=== PATIENT | male | born 2000 ===

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

== ENCOUNTER 2018-04-16 14:38 | Emergency (ER) | payer MEDICAID ==
[2018-04-16 14:38] VITALS: BMI 24.2
--- NOTE | 2018-04-16 16:05 | RAD ---
Date of service: 04/16/2018 PROCEDURE: Right Knee Radiographs. HISTORY: Fall COMPARISON: None. FINDINGS: BONES: Bone alignment and mineralization are normal. There is no acute displaced fracture or bone destruction. JOINTS: Normal. JOINT EFFUSION: None. OTHER FINDINGS: None. IMPRESSION: No acute displaced fracture or dislocation.
--- NOTE | 2018-04-16 16:41 | C.PDOC ---
History Of Present Illness 17 year old male presents to ED s/p his right leg going through a hole. Patient's leg went all the way through and all the way up to his right knee. Patient hit his right knee. He reports pain to the medial aspect of his right knee. Patient reports that he hit nothing else. Patient denies loss of consciousness and neck pain. Time Seen by Provider: 04/16/18 15:01 Chief Complaint (Nursing): Lower Extremity Problem/Injury History Per: Patient History/Exam Limitations: no limitations Onset/Duration Of Symptoms: Hrs Current Symptoms Are (Timing): Still Present - Knee Description Of Injury: Struck Against Object Past Medical History Reviewed: Historical Data, Nursing Documentation, Vital Signs Vital Signs: Last Vital Signs Temp 98.7 F 04/16/18 14:40 Pulse 91 H 04/16/18 14:40 Resp 20 04/16/18 14:40 BP 132/84 04/16/18 14:40 Pulse Ox 99 04/16/18 14:40 - Medical History PMH: No Chronic Diseases Surgical History: No Surg Hx Family History: States: Unknown Family Hx - Social History Hx Alcohol Use: No Hx Substance Use: No - Immunization History Hx Tetanus Toxoid Vaccination: No Hx Influenza Vaccination: No Hx Pneumococcal Vaccination: No Review Of Systems Constitutional: Negative for: Fever, Chills, Weakness Musculoskeletal: Positive for: Leg Pain (right knee) Skin: Negative for: Rash Neurological: Negative for: Weakness, Numbness, Dizziness Physical Exam - Physical Exam Appears: Well, No Acute Distress Skin: Normal Color, Warm, Dry Head: Atraumatic, Normacephalic Neck: Normal ROM, Supple Chest: Symmetrical, No Deformity Extremity: No Calf Tenderness, Swelling (abrasion and swelling to the medial aspect of the right ankle), Other (Hematoma with abrasion to the medial aspect of the right knee, no active bleeding) Neurological/Psych: Oriented x3, Normal Speech, Normal Cognition ED Course And Treatment O2 Sat by Pulse Oximetry: 99 (in RA) - Other Rad Right knee X-ray X-Ray: Interpreted by Me, Viewed By Me Interpretation: IMPRESSION: No acute displaced fracture or dislocation. Medical Decision Making Medical Decision Making: Impression: 17 year old male with right knee pain s/p fall Plan: Right knee X-ray ordered for patient Patient given Motrin PO and Tylenol PO Upon reassessment, patient is resting comfortably, in no distress, and is stable for discharge. Discussed results and plan with patient who expresses understanding. All questions answered and there is agreement with the plan to discharge home with instructions. Return if symptoms persist or worsen. Disposition Counseled Patient/Family Regarding: Studies Performed, Diagnosis, Need For Followup, Rx Given - Disposition Disposition: HOME/ ROUTINE Disposition Time: 16:39 Condition: STABLE Prescriptions: Ibuprofen [Motrin] 600 mg PO TID #15 tab Instructions: Contusion (DC) Forms: General Discharge Instructions, [facility] (Yakut), Work Excuse - POA Present On Arrival: None - Clinical Impression Clinical Impression: Contusion of knee - Scribe Statement The provider has reviewed the documentation as recorded by the Scribe (Nubia Chanel) All medical record entries made by the Scribe were at my direction and personally dictated by me. I have reviewed the chart and agree that the record accurately reflects my personal performance of the history, physical exam, medical decision making, and the department course for this patient. I have also personally directed, reviewed, and agree with the discharge instructions and disposition.
[2018-04-16 16:58] VITALS: BP 126/82; PULSE 90; RESP 18; TEMP 98.6
[2018-04-16 17:31] VITALS: O2SAT 99
== END 2018-04-16 16:58 | disposition home or self-care (01) ==
LOC: C.ER 14:38
DX: S80.01XA Contusion of right knee, initial encounter (principal); W17.89XA Other fall from one level to another, initial encounter